=== PATIENT | male | born 1970 | race Caucasian/White ===

== ENCOUNTER 2017-11-27 18:37 | Emergency (ER) | payer BC ==
[~2017-11-27] VITALS: Ht 177.8 cm; Wt 92.5 kg
[2017-11-27] MEDS ORDERED: ONDANSETRON 4 MG TAB.RAPDIS PO ONE ×2 (19:00→21:30)
[2017-11-27] MEDS ORDERED: IV NS 0.9% 1,000 ML BAG IV ONE (19:00)
[2017-11-27] MEDS ORDERED: ONDANSETRON HCL/PF 4 MG/2 ML VIAL ONE (19:06)
--- NOTE | 2017-11-27 19:12 | NUR ---
PT BB FAMILY C/C OF N/V/D X 3 DAYS, WORSE TODAY. PT STATES "I THINK I HAVE FOOD POISONING".PT IS AAOX4. SKIN WNL. VSS. RESP EVEN AND UNLABORED. NO S/S OF ACUTE DISTRESS NOTED. PT PLACED ON MONITOR AND POX. PT SAFETY AND COMFORT MEASURES IN PLACE. PT'S FAMILY MEMBERS BEDSIDE. WILL CONTINUE TO MONITOR PT.
[2017-11-27 19:18] LABS: BASOPHILS % (AUTO) 0.3 % (0.0-2.0); EOSINOPHILS % (AUTO) 0.3 % (0.0-6.0); HEMATOCRIT 54 % (39-51); LYMPHOCYTES # (AUTO) 0.6 /CMM (0.8-4.8); LYMPHOCYTES % (AUTO) 6.5 % (20.0-44.0); MEAN CORPUSCULAR HGB CONC 36 g/dl (31.0-36.0); MEAN CORPUSCULAR VOLUME 94 fL (80-96); MONOCYTES # (AUTO) 1.3 /CMM (0.1-1.30); MONOCYTES % (AUTO) 13.6 % (2.0-12.0); NEUTROPHILS % (AUTO) 79.3 % (43.0-81.0); PLATELET COUNT (AUTO) 308 /CMM (150-450); RDW COEFFICIENT OF VARIATION 11.6 (11.5-15.0); RED BLOOD CELL COUNT(AUTO) 5.73 MIL/uL (4.5-6.0); WHITE BLOOD COUNT (AUTO) 9.9 K/uL (4.3-11.0)
[2017-11-27 19:21] LABS: HEMOGLOBIN 19.2 g/dL (13.5-17.5)
[2017-11-27] MEDS ORDERED: ONDANSETRON 4 MG TAB.RAPDIS ONE (19:42)
--- NOTE | 2017-11-27 19:46 | NUR ---
PT MEDICATED PER MD'S ORDER
[2017-11-27 19:56] LABS: BAND % (MANUAL) 16 % (0.0-5.0); LYMPHOCYTES % (MANUAL) 4 % (16-48); MONOCYTES % (MANUAL) 18 % (0-11.0); NEUTROPHILS % (MANUAL) 62 (42-76)
[2017-11-27 20:07] LABS: CALCIUM, SERUM 9.8 mg/dL (8.5-10.1); CREATININE 1.2 mg/dL (0.6-1.3)
[2017-11-27 20:26] LABS: ALBUMIN 5.1 g/dL (3.4-5.0); BILIRUBIN,DIRECT 0.1 mg/dL (0.0-0.2); BILIRUBIN,TOTAL 0.6 mg/dL (0.2-1.0)
[2017-11-27] MEDS ORDERED: POTASSIUM CHLORIDE 20 MEQ TAB.PRT.SR PO ONE ×2 (20:30→20:45)
[2017-11-27] MEDS ORDERED: ONDANSETRON HCL/PF 4 MG/2 ML VIAL IV ONE (21:00)
--- NOTE | 2017-11-27 21:04 | NUR ---
Patient discharged to home in stable condition. Written and verbal after care instructions given. Patient verbalizes understanding of instruction.IV removed. Catheter intact and site benign. Pressure and 4x4 applied to site. No bleeding noted. VSS UPON DISCHARGE. PT AMBULATED WITH STEADY GAIT NOTED
[2017-11-27 21:06] VITALS: BP 134/93
== END 2017-11-27 21:07 | disposition home or self-care (01) ==
LOC: ER 18:39
DX: R11.2 Nausea with vomiting, unspecified (principal); R19.7 Diarrhea, unspecified; E87.6 Hypokalemia; F41.9 Anxiety disorder, unspecified; E78.5 Hyperlipidemia, unspecified
CPT/HCPCS: 36415; 80048; 80076; 83690; 85025; 96361; 96374; 99284; A4606; J2405; J7030; Q0162; Z7610